=== PATIENT | male | born 1945 | race Caucasian/White ===

== ENCOUNTER → 2017-05-15 | Outpatient (CLI) | payer MEDICARE | END | disposition home or self-care (01) | LOC: PCVCCLINIC 11:35 | PROVIDERS: ATTEND Internal Medicine Cardiovascular Disease | DX: I48.0 Paroxysmal atrial fibrillation (principal); E78.00 Pure hypercholesterolemia, unspecified; Z79.82 Long term (current) use of aspirin; Z79.899 Other long term (current) drug therapy; Z96.89 Presence of other specified functional implants | CPT/HCPCS: 93005; G0463 ==

== ENCOUNTER → 2017-06-25 | Outpatient (CLI) | payer MEDICARE ==
--- NOTE | 2017-06-25 12:05 | PCVCIMAG ---
APPROVED REPORT Exam: Stress Echocardiogram Indication: Afib, Soa, Hyperlipidemia Patient Location: Echo lab Stress Nurse: Bety Spence RN Status: routine Ht: 5 ft 10 in HR: 71 bpm BP: 130/80 mmHg Rhythm: NSR Procedure The patient underwent an Exercise Stress Test using the Shimon Protocol. Blood pressure, heart rate, and EKG were monitored. An Echocardiogram was performed by body technician in four stages in quad fashion. At peak stress, four selected images were obtained and placed side by side with resting images for comparison. Stress Test Details Stress Test: Exercise stress testing was performed using a Shimon protocol. HR Resting HR: 71 bpmMax Heart Rate (APMHR): 151 bpm Max HR Achieved: 142 bpmTarget HR (85% APMHR): 128 bpm % of APMHR: 94 HR response to stress: Normal HR response to stress BP Resting BP: 118/80 mmHg Max BP: 130/80 mmHg ECG Resting ECG: Sinus Rhythm Stress ECG: Sinus Rhythm ST Change: Non-ischemic Clinical Reason for Termination: Maximal effort Exercise duration: 12 min sec Highest Stage Achieved: Stage 4: 4.2 mph at 16% grade. Exercise capacity: 13.70 METs Overall Exercise Capacity for Age: Good Pre-Stress Echo The resting Echocardiogram showed normal left ventricular contractility with an estimated Ejection Fraction of about 55-60%. Normal wall motion in all segments on baseline images. Post-Stress Echo The stress Echocardiogram showed normal left ventricular contractility with an estimated Ejection Fraction of about 60-65%. Conclusion Clinical Response: Non-ischemic Exercise Capacity: Superior Stress ECG Response: Non-ischemic Stress Echo Images: Non-ischemic No clinical, EKG or echocardiographic evidence for ischemia. Other Information Study Quality: Good <Conclusion> No clinical, EKG or echocardiographic evidence for ischemia.
== END | disposition home or self-care (01) ==
LOC: PCVCIMAG 09:44
PROVIDERS: ATTEND Internal Medicine Cardiovascular Disease
DX: I48.0 Paroxysmal atrial fibrillation (principal); E78.00 Pure hypercholesterolemia, unspecified; Z79.82 Long term (current) use of aspirin
CPT/HCPCS: 93325; 93351; G0463

== ENCOUNTER → 2017-12-31 | Outpatient (CLI) | payer MEDICARE | END | disposition home or self-care (01) | LOC: PCVCCLINIC 10:33 | DX: I48.0 Paroxysmal atrial fibrillation (principal); E78.00 Pure hypercholesterolemia, unspecified; G25.0 Essential tremor | CPT/HCPCS: 93005; G0463 ==

== ENCOUNTER → 2018-07-01 | Outpatient (CLI) | payer MEDICARE ==
--- NOTE | 2018-07-01 10:05 | PCVCIMAG ---
APPROVED REPORT Study performed: 07/01/2018 08:49:05 EXAM: Comprehensive 2D, Doppler, and color-flow Echocardiogram Patient Location: Echo lab Status: routine BSA: 1.85 HR: 67 bpmBP: 130/88 mmHg Rhythm: NSR Other Information Study Quality: Good Indications Atrial Fibrillation Hyperlipidemia. Eseential Tremor 2D Dimensions LVEF(%): 58.05 (>50%) IVSd: 12.09 (7-11mm)LVOT Diam: 19.95 (18-24mm) LVDd: 33.49 mm PWd: 9.04 (7-11mm)Ascending Ao: 38.84 (22-36mm) LVDs: 23.53 (25-40mm) Left Atrium: 26.71 (27-40mm) Aortic Root: 34.95 mm Cole's LVEF: 58.05 % Volumes Left Atrial Volume (Systole) Single Plane 4CH: 31.02 mLSingle Plane 2CH: 33.61 mL LA ESV Index: 18.00 mL/m2 Aortic Valve AoV Peak Ancelmo.: 1.19 m/s AO Peak Gr.: 5.68 mmHgLVOT Max P.50 mmHg LVOT Max V: 0.93 m/s SADAF Vmax: 2.45 cm2 Mitral Valve E/A Ratio: 0.5 MV Decel. Time: 367.44 ms MV E Max Ancelom.: 0.40 m/s MV A Ancelmo.: 0.81 m/s IVRT: 134.95 ms TDI E/Lateral E': 4.44E/Medial E': 8.00 Medial E' Ancelmo.: 0.05 m/s Lateral E' Ancelmo.: 0.09 m/s Pulmonary Valve PV Peak Gr.: 1.72 mmHg Pulmonary Vein P Vein S: 0.53 m/sP Vein A: 0.36 m/s P Vein D: 0.26 m/sP Vein A Dur.: 86.5 msec P Vein S/D Ratio: 2.04 Tricuspid Valve TR Peak Ancelmo.: 2.49 m/s TR Peak Gr.: 24.82 mmHg Left Ventricle The left ventricle is normal size. There is normal LV segmental wall motion. There is normal left ventricular wall thickness. Left ventricular systolic function is normal. The left ventricular ejection fraction is within the normal range. LVEF is 60-65%. Right Ventricle The right ventricle is normal size. The right ventricular systolic function is normal. Atria The left atrium size is normal. The right atrium size is normal. Aortic Valve The aortic valve is normal in structure. No aortic regurgitation is present. There is no aortic valvular stenosis. Mitral Valve The mitral valve is normal in structure. There is no mitral valve regurgitation noted. No evidence of mitral valve stenosis. Tricuspid Valve The tricuspid valve is normal in structure. Mild tricuspid regurgitation. Pulmonary artery pressure is 32mmhg. Pulmonic Valve The pulmonary valve is normal in structure. Trace pulmonic regurgitation. Great Vessels The aortic root is normal in size. IVC is normal in size and collapses with >50% inspiration Pericardium There is no pericardial effusion. <Conclusion> The left ventricle is normal size. Left ventricular systolic function is normal. The right ventricle is normal size. The left atrium size is normal. There is no aortic valvular stenosis. There is no mitral valve regurgitation noted. Mild tricuspid regurgitation. Pulmonary artery pressure is 32mmhg.
== END | disposition home or self-care (01) ==
LOC: PCVCIMAG 13:41
PROVIDERS: ATTEND Internal Medicine Cardiovascular Disease
DX: I48.0 Paroxysmal atrial fibrillation (principal); I07.1 Rheumatic tricuspid insufficiency; I48.91 Unspecified atrial fibrillation; E78.00 Pure hypercholesterolemia, unspecified; E78.5 Hyperlipidemia, unspecified; R25.1 Tremor, unspecified
CPT/HCPCS: 93005; 93306; G0463

== ENCOUNTER → 2018-12-30 | Outpatient (CLI) | payer MEDICARE | END | disposition home or self-care (01) | LOC: PCVCCLINIC 10:26 | PROVIDERS: ATTEND Internal Medicine Cardiovascular Disease | DX: I48.0 Paroxysmal atrial fibrillation (principal); E78.00 Pure hypercholesterolemia, unspecified; G25.0 Essential tremor; Z79.82 Long term (current) use of aspirin | CPT/HCPCS: 93005; G0463 ==